=== PATIENT | female | born 1990 | race Two or more races ===

== ENCOUNTER 2021-09-08 14:24 | Emergency (ER) | payer BC, MEDICAID ==
[~2021-09-08] VITALS: Ht 165.1 cm; Wt 93.0 kg
[2021-09-08 14:43] VITALS: BP 99/65
[2021-09-08 18:35] LABS: Basophils # (auto) 0 10 ^3/uL (0-0.2); Basophils % (auto) 0.3 % (0.0-2.0); Eosinophils # (auto) 0 10 ^3/uL (0-0.8); Eosinophils % (auto) 0.2 % (0.0-7.0); Hematocrit 40.7 % (36.0-46.0); Hemoglobin 13.8 g/dL (12.2-16.2); Lymphocytes # (auto) 1.7 10 ^3/uL (0.4-5.4); Lymphocytes % (auto) 18.4 % (10.0-50.0); Mean Corpuscular Hgb Conc. 33.8 g/dL (32.0-36.0); Mean Corpuscular Volume 88.5 fL (80.0-100.0); Monocytes # (auto) 0.2 10 ^3/uL (0-1.3); Monocytes % (auto) 2.3 % (0.0-12.0); Neutrophils # (auto) 7.3 10 ^3/uL (1.6-8.6); Neutrophils % (auto) 78.8 % (37.0-80.0); Red Blood Cells 4.59 10^6/uL (4.0-5.20); Red Cell Distribution Width 14.8 % (11.8-14.3); White Blood Cell 9.2 10^3/uL (4.4-10.8)
[2021-09-08 18:49] LABS: INR 1.08 (0.9-1.15); Partial Thromboplastin Time 25.6 sec (23.6-33.0)
[2021-09-08 18:53] LABS: Albumin 3.4 g/dL (3.4-5.0); Calcium 9.1 mg/dL (8.5-10.1); Magnesium 2.2 mg/dL (1.6-2.6)
[2021-09-08 18:55] LABS: BUN/Creatinine Ratio 9.2
[2021-09-08 18:57] LABS: Bilirubin, Total 0.4 mg/dL (0.2-1.0)
== END 2021-09-08 23:03 | disposition home or self-care (01) ==
LOC: ER 14:24
DX: R55 Syncope and collapse (principal)
CPT/HCPCS: 36415; 71046; 80053; 83735; 84702; 85025; 85610; 85730; 86850; 86900; 86901; 93005

== ENCOUNTER 2021-09-17 16:02 | Inpatient (IN) | payer BC, MEDICAID ==
[~2021-09-17] VITALS: Ht 162.6 cm; Wt 93.9 kg
[2021-09-17] MEDS ORDERED: SODIUM CHLORIDE 0.9% 1,000 ML IV ONE (16:30)
[2021-09-17 17:21] LABS: Basophils # (auto) 0 10 ^3/uL (0-0.2); Basophils % (auto) 0.4 % (0.0-2.0); Eosinophils # (auto) 0 10 ^3/uL (0-0.8); Eosinophils % (auto) 0.4 % (0.0-7.0); Hematocrit 46.7 % (36.0-46.0); Hemoglobin 15.5 g/dL (12.2-16.2); Lymphocytes # (auto) 2.1 10 ^3/uL (0.4-5.4); Lymphocytes % (auto) 21.7 % (10.0-50.0); Mean Corpuscular Hemoglobin 29.6 pg (28.0-32.0); Mean Corpuscular Hgb Conc. 33.2 g/dL (32.0-36.0); Monocytes # (auto) 0.4 10 ^3/uL (0-1.3); Monocytes % (auto) 4.1 % (0.0-12.0); Neutrophils # (auto) 7.1 10 ^3/uL (1.6-8.6); Neutrophils % (auto) 73.4 % (37.0-80.0); Nucleated Red Blood Cells % 0.2 %; Red Blood Cells 5.25 10^6/uL (4.0-5.20); Red Cell Distribution Width 15.2 % (11.8-14.3); White Blood Cell 9.7 10^3/uL (4.4-10.8)
[2021-09-17] MEDS ORDERED: ASPirin 325 MG TAB PO ONE (17:30)
[2021-09-17 17:38] LABS: Albumin 4.1 g/dL (3.4-5.0); Calcium 9.5 mg/dL (8.5-10.1); Potassium 4.2 mmol/L (3.5-5.1)
[2021-09-17 17:41] LABS: Bilirubin, Total 0.9 mg/dL (0.2-1.0); Total Protein 8.8 g/dL (6.4-8.2)
[2021-09-17] MEDS ORDERED: HEPARIN SODIUM (PORCINE) 5000 UNITS/ML 1ML VIAL IV ONE (18:00)
[2021-09-17] MEDS ORDERED: HEPARIN DRIP/D5W 100UNITS/ML 250 ML IV SCH (18:30)
[2021-09-17 20:05] LABS: Magnesium 2.6 mg/dL (1.6-2.6)
[2021-09-17 20:09] LABS: INR 1.1 (0.9-1.15); Partial Thromboplastin Time 26.9 sec (23.6-33.0)
[2021-09-17] MEDS ORDERED: DOCUSATE SOD 100 MG CAP PO PRN (21:30)
[2021-09-17] MEDS ORDERED: HYDROcodone-ACET 5/325MG TAB PO PRN (21:30)
[2021-09-17] MEDS ORDERED: ACETAMINOPHEN 325 MG TAB PO PRN (21:30)
[2021-09-17] MEDS ORDERED: ONDANSETRON HCL 4 MG/2 ML VIAL IV PRN (21:30)
[2021-09-17] MEDS: SODIUM CHLOR 0.9% PF (SALINE LOCK) 10ML VIAL/SYR IV SCH (22:07)
[2021-09-17] MEDS ORDERED: MORPHINE SULFATE INJ 2 MG/ml SYRG IV PRN (23:30)
[2021-09-17] MEDS ORDERED: NITROGLYCERIN 0.4 MG SL TAB SL PRN (23:30)
[2021-09-18 03:52] LABS: Basophils # (auto) 0 10 ^3/uL (0-0.2); Basophils % (auto) 0.6 % (0.0-2.0); Eosinophils # (auto) 0.1 10 ^3/uL (0-0.8); Eosinophils % (auto) 1.3 % (0.0-7.0); Hematocrit 39.5 % (36.0-46.0); Lymphocytes # (auto) 3.2 10 ^3/uL (0.4-5.4); Lymphocytes % (auto) 40.3 % (10.0-50.0); Mean Corpuscular Hgb Conc. 32.8 g/dL (32.0-36.0); Mean Corpuscular Volume 88.4 fL (80.0-100.0); Monocytes # (auto) 0.4 10 ^3/uL (0-1.3); Monocytes % (auto) 5.3 % (0.0-12.0); Neutrophils # (auto) 4.2 10 ^3/uL (1.6-8.6); Neutrophils % (auto) 52.5 % (37.0-80.0); Nucleated Red Blood Cells % 0.1 %; Red Blood Cells 4.47 10^6/uL (4.0-5.20); Red Cell Distribution Width 15.1 % (11.8-14.3)
[2021-09-18 04:14] LABS: INR 1.13 (0.9-1.15); Partial Thromboplastin Time 29.3 sec (23.6-33.0)
[2021-09-18 04:15] LABS: Albumin 2.9 g/dL (3.4-5.0); BUN/Creatinine Ratio 22.1; Calcium 8.3 mg/dL (8.5-10.1); Magnesium 2.4 mg/dL (1.6-2.6)
[2021-09-18 04:18] LABS: Bilirubin, Total 0.6 mg/dL (0.2-1.0); Total Protein 6.7 g/dL (6.4-8.2)
[2021-09-18] MEDS ORDERED: HEPARIN SODIUM (PORCINE) 5000 UNITS/ML 1ML VIAL IV ONE ×3 (04:58→20:30)
[2021-09-18] MEDS ORDERED: HEPARIN SODIUM (PORCINE) 5000 UNITS/ML 1ML VIAL ONE (04:58)
[2021-09-18] MEDS: SODIUM CHLOR 0.9% PF (SALINE LOCK) 10ML VIAL/SYR IV SCH ×3 (06:39→23:10)
[2021-09-18 09:43] VITALS: BP 97/63
[2021-09-18 10:39] LABS: INR 1.14 (0.9-1.15); Partial Thromboplastin Time 43.9 sec (23.6-33.0)
[2021-09-18] MEDS ORDERED: APIX5TAB PO (12:48)
[2021-09-18] MEDS ORDERED: LEVO-28 PO (12:48)
[2021-09-18 13:00] VITALS: BP 104/67
[2021-09-18 16:54] VITALS: BP 92/63
[2021-09-18 18:23] LABS: INR 1.16 (0.9-1.15); Partial Thromboplastin Time 32.4 sec (23.6-33.0)
[2021-09-18] MEDS: HEPARIN DRIP/D5W 100UNITS/ML 250 ML IV SCH (19:11)
[2021-09-19 02:34] LABS: INR 1.16 (0.9-1.15); Partial Thromboplastin Time 47.6 sec (23.6-33.0)
[2021-09-19 04:35] VITALS: BP 86/54
[2021-09-19] MEDS: SODIUM CHLOR 0.9% PF (SALINE LOCK) 10ML VIAL/SYR IV SCH ×3 (06:30→21:24)
[2021-09-19 09:00] VITALS: BP 96/59
[2021-09-19 10:50] LABS: INR 1.12 (0.9-1.15); Partial Thromboplastin Time 43.6 sec (23.6-33.0)
[2021-09-19] MEDS: HEPARIN DRIP/D5W 100UNITS/ML 250 ML IV SCH (11:50)
[2021-09-19 12:00] VITALS: BP 105/71
[2021-09-19 16:30] VITALS: BP 104/71
[2021-09-19 16:43] LABS: INR 1.16 (0.9-1.15); Partial Thromboplastin Time 46.6 sec (23.6-33.0)
[2021-09-19 20:40] LABS: INR 1.16 (0.9-1.15); Partial Thromboplastin Time 57.2 sec (23.6-33.0)
[2021-09-19 22:00] VITALS: BP 125/71
[2021-09-20] MEDS: HEPARIN DRIP/D5W 100UNITS/ML 250 ML IV SCH ×3 (01:12→22:33)
[2021-09-20 05:14] LABS: INR 1.11 (0.9-1.15); Partial Thromboplastin Time 58.5 sec (23.6-33.0)
[2021-09-20 05:15] VITALS: BP 107/64
[2021-09-20] MEDS: SODIUM CHLOR 0.9% PF (SALINE LOCK) 10ML VIAL/SYR IV SCH ×3 (05:16→23:08)
[2021-09-20] MEDS ORDERED: HEPARIN DRIP/D5W 100UNITS/ML 250 ML IV SCH (08:00)
[2021-09-20 08:56] VITALS: BP 92/50
[2021-09-20 09:00] VITALS: BP 110/62
[2021-09-20] MEDS ORDERED: APIXABAN 5 MG TAB PO SCH ×2 (10:00)
[2021-09-20] MEDS ORDERED: ZOLPIDEM TARTRATE 5 MG TAB PO PRN (10:15)
[2021-09-20 11:14] LABS: INR 1.12 (0.9-1.15); Partial Thromboplastin Time 65.9 sec (23.6-33.0)
[2021-09-20 13:00] VITALS: BP 109/69
[2021-09-20 17:05] VITALS: BP 98/76
[2021-09-20 22:00] VITALS: BP 103/63
[2021-09-20] MEDS: APIXABAN 5 MG TAB PO SCH (23:06)
[2021-09-21 05:00] VITALS: BP 94/59
[2021-09-21] MEDS: SODIUM CHLOR 0.9% PF (SALINE LOCK) 10ML VIAL/SYR IV SCH (05:38)
[2021-09-21 06:54] LABS: INR 1.22 (0.9-1.15)
[2021-09-21 07:14] LABS: Partial Thromboplastin Time > 139.0 sec (23.6-33.0)
[2021-09-21 09:00] VITALS: BP 109/74
[2021-09-21] MEDS: APIXABAN 5 MG TAB PO SCH (11:25)
[2021-09-30] MEDS ORDERED: APIXABAN 5 MG TAB PO SCH (10:00)
== END 2021-09-21 14:26 | disposition home or self-care (01) | DRG 175 ==
LOC: ER 16:02 → TELE 23:29 → TELE-WESTW 09-18 09:24
PROVIDERS: ADMIT Nurse Practitioner Family; ATTEND Family Medicine
DX: I26.99 Other pulmonary embolism without acute cor pulmonale (principal); J96.01 Acute respiratory failure with hypoxia; D68.59 Other primary thrombophilia; Z20.822 Contact with and (suspected) exposure to COVID-19; R77.8 Other specified abnormalities of plasma proteins; R79.89 Other specified abnormal findings of blood chemistry; Z79.01 Long term (current) use of anticoagulants; Z82.49 Family history of ischemic heart disease and other diseases of the circulatory system; Z83.3 Family history of diabetes mellitus; Z86.16 Personal history of COVID-19; Z86.711 Personal history of pulmonary embolism
CPT/HCPCS: 36415; 36600; 71045; 71275; 80053; 80061; 82805; 83735; 84484; 84702; 85025; 85379; 85610; 85730; 93005; 93306; 93970; 96361; 96365; 96376; 99291; G0378